=== PATIENT | female | born 1980 | race Two or more races ===

== ENCOUNTER 2018-02-22 11:47 | Emergency (ER) | payer OTHER ==
[~2018-02-22] VITALS: Ht 165.1 cm; Wt 63.5 kg
[2018-02-22 11:51] VITALS: BP 140/94
== END 2018-02-22 12:38 | disposition home or self-care (01) ==
LOC: ER 11:53
DX: S16.1XXA Strain of muscle, fascia and tendon at neck level, initial encounter (principal); M62.838 Other muscle spasm; V43.52XA Car driver injured in collision with other type car in traffic accident, initial encounter; Y93.89 Activity, other specified; Y92.410 Unspecified street and highway as the place of occurrence of the external cause; Y99.8 Other external cause status
CPT/HCPCS: A4606; Z7610

== ENCOUNTER 2020-04-13 22:42 | Emergency (ER) | payer OTHER ==
[~2020-04-13] VITALS: Ht 165.1 cm; Wt 63.5 kg
[2020-04-13 22:45] VITALS: BP 127/72
--- NOTE | 2020-04-13 22:58 | NUR ---
PT AAOX4. BIBSELF C/O ABD BLOATING X1 WEEK. HEMATURIA, PAIN, BURNING WHEN PEEING. VSS. NO ACUTE DISTRESS NOTED.
[2020-04-13 23:27] LABS: APPEARANCE,URINE TURBID (CLEAR); COLOR,URINE RED (YELLOW)
[2020-04-13 23:28] LABS: BILIRUBIN,URINE NEGATIVE (NEGATIVE); BLOOD, URINE 3+ Ery/uL (NEGATIVE); KETONES,URINE NEGATIVE (NEGATIVE); NITRITE, URINE NEGATIVE (NEGATIVE); PH,URINE 7.5 (5.0-8.0); PROTEIN,URINE 1+ mg/dl (NEGATIVE); UGLUCOSE NEGATIVE (NEGATIVE); UROBILINOGEN,URINE 0.2 EU/dL (0.2)
[2020-04-13 23:29] LABS: LEUKOCYTE ESTERASE ,URINE 1+ (NEGATIVE)
[2020-04-13 23:38] LABS: BACTERIA,URINE Moderate /HPF (None Seen); RBC,URINE TOO NUMEROUS TO COUN /HPF (0-2); SQUAMOUS EPITHELIAL CELL,UR Few /HPF (None Seen); WBC,URINE TOO NUMEROUS TO COUN /HPF (0-3)
--- NOTE | 2020-04-13 23:54 | NUR ---
Patient discharged to home in stable condition. Written and verbal after care instructions given. Patient verbalizes understanding of instruction and RX. Pt ambualted with steady gait. vss.
[2020-04-14] MEDS ORDERED: PHENAZOPYRIDINE HCL 200 MG TABLET PO ONE
[2020-04-14] MEDS ORDERED: SULFAMETH/TRIMETH 800/160 MG 1 UDTAB TABLET PO ONE
[2020-04-14] MEDS ORDERED: PHENAZOPYRIDINE HCL 200 MG TABLET ONE (00:05)
[2020-04-14] MEDS ORDERED: SULFAMETH/TRIMETH 800/160 MG 1 UDTAB TABLET ONE (00:05)
== END 2020-04-14 00:44 | disposition home or self-care (01) ==
LOC: ER 22:46
DX: N39.0 Urinary tract infection, site not specified (principal)
CPT/HCPCS: 81000-TC; 84703-TC; 87086-TC

== ENCOUNTER 2023-11-05 07:36 | Emergency (ER) | payer OTHER ==
[~2023-11-05] VITALS: Ht 165.1 cm; Wt 64.4 kg
[2023-11-05] MEDS ORDERED: TRAZ-182 PO (08:00)
[2023-11-05 08:24] VITALS: BP 138/82; TEMP 98.1; O2SAT 100
== END 2023-11-05 08:24 | disposition home or self-care (01) ==
LOC: ER 07:45
DX: F41.0 Panic disorder [episodic paroxysmal anxiety] (principal); G47.00 Insomnia, unspecified; F13.10 Sedative, hypnotic or anxiolytic abuse, uncomplicated